=== PATIENT | female | born 1970 | race Caucasian/White ===

== ENCOUNTER 2016-09-02 10:06 | Outpatient (CLI) | payer BC ==
--- NOTE | 2016-09-02 11:08 | DIAGNOSTIC IMAGING REPORT ---
PROCEDURE: US COMPLETE PELVIC W/TRANSVAG INDICATION: PAIN IN JOINT INVOLVING RT PELVIC/AND THIGH TECHNIQUE: Transabdominal and endovaginal elias scale and color Doppler sonographic images of the female pelvis were obtained. COMPARISON: None. FINDINGS: TRANSABDOMINAL SCANS: No pelvic mass. Normal kidneys. Bladder has a normal appearance. TRANSVAGINAL SCANS: Hysterectomy. Normal vaginal cuff. Left ovary surgically absent. Right ovary not visualized. No adnexal mass or free fluid in the cul-de-sac. IMPRESSION: 1. Hysterectomy and left oophorectomy 2. Right ovary not visualized. 3. No pelvic mass or free fluid.
== END 2016-09-02 23:00 ==
LOC: US SRH 10:06
DX: Z90.710 Acquired absence of both cervix and uterus (principal)

== ENCOUNTER 2016-10-08 15:04 | Outpatient (CLI) | payer BC ==
[~2016-10-08 15:04] MED LIST: CYCLOBENZAPRINE10 MG PO
[2016-10-09] MEDS ORDERED: PERCOCET1 TA1 PO (12:17)
== END 2016-10-08 23:00 | disposition home or self-care (01) ==
LOC: LAB SRH 15:04
DX: Z01.818 Encounter for other preprocedural examination (principal); Z01.812 Encounter for preprocedural laboratory examination; R10.2 Pelvic and perineal pain
CPT/HCPCS: 90001; 90004; 90047; 90074; 90155; 90197; 90364; 91004; 92863; 95059

== ENCOUNTER 2016-10-09 09:53 | Day surgery (SDC) | payer BC ==
--- NOTE | 2016-10-03 12:40 | HISTORY AND PHYSICAL ---
ADMITTED: 10/09/2016 CHIEF COMPLAINT: Irregular persistent, sharp right lower quadrant pain HISTORY OF PRESENT ILLNESS: The patient is a recent transfer from the [facility] where she has been followed with different surgeries in the past and is requesting diagnostic laparoscopy for right lower quadrant pain and possible right salpingo-oophorectomy. MEDICAL/SURGICAL HISTORY: The patient has had 2 vaginal deliveries up to 10 pounds and a section for twins and later had dysfunctional uterine bleeding with attempted ablation, which turned into a perforation with treatment by laparoscope and she had laparoscopic-assisted vaginal hysterectomy and left salpingo-oophorectomy and was told to keep her right side. With persistent pain , thought to be from ovulations, on the right side at age of 46. We had discussions about the diagnostic scope and possible RSO. On ultrasound, there was no significant findings on ultrasound. The patient has now been cleared after several visits and is going to have a diagnostic laparoscopy, most likely a right salpingo-oophorectomy after her discussions to show that future right- sided pain is not due to the ovary. Consultation about menopausal and hormone replacement therapy also discussed on several occasions. Menarche normal. Contraceptive abortive history: Negative. OB history: Multiple miscarriages, 2 vaginal deliveries, 1 C section for delivery of twins. Past surgical history: Breast augmentation, appendectomy, hysterectomy, left salpingo oophorectomy, knee surgery, tonsillectomy, tummy tuck. Medical history: Negative: MEDICATIONS: 1. None. ALLERGIES: 1. NONE. SOCIAL HISTORY: Negative smoking, drugs, occasional alcohol. FAMILY HISTORY: Essentially negative for mother, father, siblings alive and well. Hypertension in maternal grandfather, paternal grandfather and father. Cancer, breast in maternal aunt, skin cancer in maternal grandfather and pancreatic in paternal grandmother. REVIEW OF SYSTEMS: Benign. Alert and oriented x3. Genitourinary: Purpose of surgery, right lower quadrant pain, irregular, intense. Cardiovascular: No shortness of breath or chest pain. Gastrointestinal: Normal daily bowel movements. PHYSICAL EXAMINATION: VITAL SIGNS: She is 5 feet 4 inches, 164 pounds, 66 inches, blood pressure 128/ 74, pulse and temperature normal. SKIN/HAIR/INTEGUMENT: Normal. HEENT: Grossly intact. BREASTS: Exam not done. History of augmentation. LUNGS: Clear. HEART: Regular rate and rhythm. ABDOMEN: Benign, previous scars. EXTREMITIES: No significant clubbing, cyanosis, erythema or edema. PELVIC: Exam not done today. RECTAL: Deferred. LAB/IMAGING: Pending. IMPRESSION: 1. Recurrent persistent right adnexal pain. PLAN: Diagnostic laparoscopy with operative right salpingo-oophorectomy. Informed consent was given to the patient. Risks, benefits, complications, and alternatives related to various risks associated with driving a car, possibility of blood loss, damage to pelvic and nonpelvic organs requiring additional surgery, intensive care unit stay and nasogastric tube, coma and . This was reviewed in detail, the risks and benefits of the surgery again were reviewed with the patient. She understands and accepts.
[~2016-10-09] VITALS: Ht 167.6 cm; Wt 74.3 kg
--- NOTE | 2016-10-09 10:29 | NUR ---
PREOP INSTRUCTIONS GIVEN TO PATIENT. QUESTIONS ANSWERED. PATIENT VERBALIZES UNDERSTANDING. CONSENT CONFIRMED. NO PREOP MEDICATIONS. SCDs ON. PATIENT RESTING COMFORTABLY. KB
[2016-10-09] MEDS ORDERED: PERCOCET1 TA1 PO (12:17)
--- NOTE | 2016-10-09 12:18 | Provider's Discharge Care Plan ---
Problem, Goal, Plan Problem List 1. Post-op pain Goals: Improve disease control Instructions: Follow up as needed
--- NOTE | 2016-10-09 12:18 | Provider's Discharge Care Plan ---
Problem, Goal, Plan Problem List 1. Post-op pain Goals: Improve disease control Instructions: Follow up as needed
--- NOTE | 2016-10-09 12:36 | NUR ---
PT RECEIVED TO PACU AROUSABLE, COUGHING AND REPORTING STRESS INCONTINENCE WITH COUGH. PLACED ON HUMIDIFIED O2 VIA FACE TENT FOR INTRACTABLE, NONPRODUCTIVE COUGH. VOIDED SMALL RESIDUAL AMOUNT ON BEDPAN, PERICARE AND DRY LINENS PROVIDED. PT REPORTS MINIMAL PAIN AND NO NAUSEA. WARM BLANKET TO ABDOMEN AND WARM BLANKETS FOR COMFORT. VSS.
--- NOTE | 2016-10-09 12:53 | NUR ---
PT AWAKE AND MODERATELY COMFORTABLE. NO NAUSEA, PAIN AT 3/10. VSS.
--- NOTE | 2016-10-09 13:27 | NUR ---
PATIENT RETURNED TO THE FLOOR AWAKE AND TALKING. VSS. PO OFFERED AND TOLERATED. DENIES PAIN AND NAUSEA AT THIS TIME. KB
[2016-10-09 13:41] VITALS: BP 133/73
--- NOTE | 2016-10-09 13:56 | NUR ---
PATIENT C/O MILD NAUSEA. VISTARIL PO GIVEN. BACK TO [facility]. WILL ADVANCE. CONTINUES TO DENY NEED FOR PAIN MEDS. KB
--- NOTE | 2016-10-09 14:35 | NUR ---
PATIENT C/O BILATERAL THIGH NUMBNESS. DENIES NUMBNESS IN BUTT OR BELOW THIGHS. AMBULATED TO THE BR WITHOUT DIFFICULTY. STATES NAUSEA IS A LITTLE BETTER. VSS. UP IN ROOM INDEPENDENTLY. DISCHARGE INSTRUCTIONS GIVEN TO PATIENT. QUESTONS ANSWERED. PATIENT VERBALIZES UNDERSTANDING. WILL DISCHARGE HOME WITH FRIEND. CATHERINE
--- NOTE | 2016-10-09 14:52 | NUR ---
PATIENT INSTRUCTED TO CALL DR DUNN IN MORNING IN REGARDS TO FLIGHTS ON THU AND . STATED SHE WOULD. OXYCODONE FOR PAIN. KB
--- NOTE | 2016-11-05 09:07 | OPERATIVE REPORT ---
DATE OF SURGERY: 10/09/2016 SURGEON: ОЛЕГ DUNN MD LOADING MANAGER: None PREOPERATIVE DIAGNOSIS: 1. Chronic and acute right lower quadrant pain. POSTOPERATIVE DIAGNOSIS: 1. Chronic and acute right lower quadrant pain. PROCEDURE PERFORMED: 1. Triple puncture 5-mm trocar operative laparoscopy with right oophorectomy with partial salpingectomy suspected. ANESTHESIA: General endotracheal. COMPLICATIONS: None. ESTIMATED BLOOD LOSS: Minimal, less than 5 mL; no blood transfusion GRAFTS/IMPLANTS: No grafts, no implants. PATHOLOGY SPECIMENS: Right ovary sent to Pathology. SURGICAL FINDINGS: Normal. There were significant adhesions. SURGICAL TECHNIQUE: The patient had a time-out. Thus, the usual triple puncture was performed. The patient had previous surgeries. A 5 mm was placed initially subumbilical and then changed to 10 mm, so the specimen could be removed. The trocars were placed without difficulty with good visualization. The right ovary was easily identified, elevated with a grasper. A Thunderbeat was used to dissect and cauterize along the ovarian ligament. The specimen was 1 x 2 x 1. Easily removed by placement in an Endoloop bag and brought out through the 10 mm shaft as the 10 mm port was removed. The instruments were removed. Pictures were taken since determined the case was without difficulty. A [id number] placed in the fascia and then the subcu and the subumbilical incision. Sponge, needle, tape, instrument count was correct x2. The patient tolerated the procedure well and went to the recovery room in good condition. The patient was to be discharged home with Percocet later in the day.
--- NOTE | 2016-11-05 09:07 | OPERATIVE REPORT ---
DATE OF SURGERY: 10/09/2016 SURGEON: ОЛЕГ DUNN MD METAL INSPECTOR: None PREOPERATIVE DIAGNOSIS: 1. Chronic and acute right lower quadrant pain. POSTOPERATIVE DIAGNOSIS: 1. Chronic and acute right lower quadrant pain. PROCEDURE PERFORMED: 1. Triple puncture 5-mm trocar operative laparoscopy with right oophorectomy with partial salpingectomy suspected. ANESTHESIA: General endotracheal. COMPLICATIONS: None. ESTIMATED BLOOD LOSS: Minimal, less than 5 mL; no blood transfusion GRAFTS/IMPLANTS: No grafts, no implants. PATHOLOGY SPECIMENS: Right ovary sent to Pathology. SURGICAL FINDINGS: Normal. There were significant adhesions. SURGICAL TECHNIQUE: The patient had a time-out. Thus, the usual triple puncture was performed. The patient had previous surgeries. A 5 mm was placed initially subumbilical and then changed to 10 mm, so the specimen could be removed. The trocars were placed without difficulty with good visualization. The right ovary was easily identified, elevated with a grasper. A Thunderbeat was used to dissect and cauterize along the ovarian ligament. The specimen was 1 x 2 x 1. Easily removed by placement in an Endoloop bag and brought out through the 10 mm shaft as the 10 mm port was removed. The instruments were removed. Pictures were taken since determined the case was without difficulty. A [id number] placed in the fascia and then the subcu and the subumbilical incision. Sponge, needle, tape, instrument count was correct x2. The patient tolerated the procedure well and went to the recovery room in good condition. The patient was to be discharged home with Percocet later in the day.
== END 2016-10-09 14:57 | disposition home or self-care (01) ==
LOC: SCU SRH 09:53 → OR SRH 09:53
PROVIDERS: Obstetrics & Gynecology
PROC: 0UT04ZZ Resection of Right Ovary, Percutaneous Endoscopic Approach (ICD-10-PCS; principal; 2016-10-09 12:45)
DX: R10.31 Right lower quadrant pain (principal); N83.01 Follicular cyst of right ovary; Z90.710 Acquired absence of both cervix and uterus
CPT/HCPCS: 29229; 29240; 50002; 60001; 70002; 80102; 80212; 80248; 82897; 83125; 83432; 83982; 84038

== ENCOUNTER 2016-11-02 20:54 | Emergency (ER) | payer BC ==
[~2016-11-02 20:54] MED LIST changes: +PERCOCET1 TA1 PO
--- NOTE | 2016-11-02 23:46 | DIAGNOSTIC IMAGING REPORT ---
PROCEDURE: CT ABDOMEN/PELVIS W/O CONTRAST INDICATION: ABDOMINAL PAIN TECHNIQUE: Noncontrast axial images with sagittal and coronal reformations. Intravenous contrast was not utilized (reportedly due to contrast allergy. COMPARISON: None. FINDINGS: ABDOMEN: Gallbladder is contracted (with moderate ingested material in the stomach). Liver, spleen, pancreas, and aorta are normal. There is a 1.5 mm calcification overlying the right iliopsoas muscle which most likely represents a phlebolith. Mild to moderate stool. Small bowel pattern is normal. Surgical clips at the base the appendix. Bilateral breast implants). Postoperative changes of the lower lumbar spine (laminectomy) PELVIS: Status post hysterectomy. Pelvic structures are otherwise normal. No evidence of free fluid. IMPRESSION: 1. Gallbladder is contracted (with moderate ingested material in the stomach). 2. Status post hysterectomy and probable appendectomy. 3. Otherwise negative CT abdomen and pelvis. 4. Findings discussed with KULDIP Thompson All CT scans at this facility use dose modulation, iterative reconstruction, and/or weight-based dosing when appropriate to reduce radiation dose to as low as reasonably achievable.
--- NOTE | 2016-11-02 23:55 | ED ORDER SUMMARY ---
..... Patient: ALEJA FERNANDEZ OrderSheet [facility] VisitID: [id number] [address] [place] [address] 46y, F Registration Date/Time: 11/02/2016 ORDER SHEET Weight: 71.2 kg (stated) Allergies: No Known Drug Allergy GENERAL ORDERS: CBC w Diff Urgent (21:32 11/02/2016 EKoroleva P.A.-C) (Ack 21:35 AMcQuoid ER Tech1) CMP Urgent (21:32 11/02/2016 EKoroleva P.A.-C) (Ack 21:35 AMcQuoid ER Tech1) UA-Culture if indicated Urgent (:32 11/02/2016 EKoroleva P.A.-C) (Ack 21:35 AMcQuoid ER Tech1) CT Abd/Pel w Cont (No) (N/A) Urgent (22:30 11/02/2016 EKoroleva P.A.-C) (Ack 22:42 AMcQuoid ER Tech1) (Cancelled: Other22:54 EKoroleva P.A.-C) CT Abd/Pel wo Cont Urgent (22:54 11/02/2016 EKoroleva P.A.-C) (23:08 RFay) Vitals (23:38 11/02/2016 EKoroleva P.A.-C) (0:17 KPage-Kuchan R.N.) MEDICATION ORDERS: Bactrim DS PO (Tablet 800-160 mg) 1 tab (NOW) (23:48 11/02/2016 EKoroleva P.A.-C) (Ack 0:05 KPage-Kuchan R.N.) (0:17 KPage-Kuchan R.N.) Keflex PO 500 mg (NOW) (23:49 11/02/2016 EKoroleva P.A.-C) (Ack 0:05 KPage-Kuchan R.N.) (0:17 KPage-Kuchan R.N.) IV FLUIDS: IV NS : initial bolus 250 mL (1000 mL/hr), then 200 mL/hr for X1 (NOW); Riky (21:32 11/02/2016 Danika Galloway) (Ack 21:39 al) (22:00 Carlos Hensley) ORDER SHEET NOTES: [Electronically signed by Chikis Casiano P.A.-C (23:59 11/02/2016)] [Electronically signed by Sheriff Ayedn Dupree (09:01 11/05/2016)] [Electronically locked/signed by Sheriff Ayden Dupree (09:01 11/05/2016)]
--- NOTE | 2016-11-02 23:55 | ED NURSING NOTES ---
Clinical Report - Nurses [facility] [place] [address] [address] 11/02/2016 20:55 Patient: ALEJA FERNANDEZ TRIAGE Triage time 21:03. Acuity: LEVEL 3. Chief Complaint: ABDOMINAL PAIN. --21: Sheriff Dupree R.N. 21:02 11/02/16. BP: 138/80. HR: 72. RR: 18. O2 saturation: 100%. Temp: 98.3 F. Pain level now: 08/27. --21: Sheriff Dupree R.N. Weight: 71.2 kg stated. Height/Length: 66 inches Per Patient. BMI: 25.3. --21: Sheriff Dupree R.N. Medications Percocet Oral. --21: Sheriff Dupree R.N. Allergies No Known Drug Allergy. --21: Sheriff Dupree R.N. History Arrived by private vehicle. Historian: patient. Accompanied by family. ( Post op right oophorectomy surgery 3 week ago.). PAST MEDICAL HX: Denies current . SURGERY HX: Had hysterectomy. Oophorectomy (Bilateral. Right oophorectomy 3 weeks ago). SOCIAL HX: Never smoker. Occasional alcohol use. No drug use. FALL RISK ASSESSMENT: Fall risk assessment completed. No fall risk identified. NUTRITIONAL RISK ASSESSMENT: The nutritional risk assessment revealed no deficiencies. FUNCTIONAL ASSESSMENT: Functional assessment: no impairments noted. LEARNING NEEDS ASSESSMENT: The learning needs assessment revealed no barriers. SKIN INTEGRITY ASSESSMENT: Skin integrity risk assessment completed. No skin integrity risk identified. --21:08 Sheriff Dupree R.N. PROBLEMS: Ovarian Cyst. Gastritis. Recent Travel. Lupus. --21:05 Sheriff Dupree R.N. PHYSICAL ASSESSMENT Ambulatory to room. GENERAL / NEURO / PSYCH: Alert. Oriented X 4. Appears in no acute distress. HEENT: Mucous membranes are pink. RESPIRATORY: Respirations not labored. CVS: Capillary refill less than 2 seconds. SKIN: Skin is warm and dry. --21:08 Sheriff Dupree R.N. NURSING PROGRESS NOTES Head of bed elevated. Two patient identifiers checked. Call light placed in reach. Side rails up x 2. Bed placed in lowest position. Brakes of bed on. --21:09 Sheriff Dupree R.N. 21:54 11/02/2016 Site #1 started via IV in the left wrist with an 22g angiocath, with aseptic technique and good blood return; one attempt. Blood drawn: rainbow set. Labeled in the presence of the patient and sent to the lab. Saline lock flushed with 10 mL saline. --21:59 Sheriff Dupree R.N. 21:59 11/02/2016 Started bag #1 250 mL IV Fluids IV NS (Saline); at 1000 mL/hr over 30 minute(s) via site #1 via IV pump. Allergies verified and confirmed 5 rights. IV patency established. IV site checked: no pain, redness, or swelling. IV flushed thoroughly pre- and post-medication administration. --22:00 Sheriff Dupree R.N. 00:12 11/03/2016 Bactrim DS (Sulfamethoxazole-TMP DS) PO 1 tab given. Allergies verified and confirmed 5 rights. --00:17 Kj Quijano R.N. 00:12 11/03/2016 Keflex (Cephalexin) PO 500 mg given. Allergies verified and confirmed 5 rights. --00:17 Kj Quijano R.N. DISPOSITION / DISCHARGE 00:08 11/03/2016 Site #1 removed upon discharge. Bandaid applied. --00:19 Kj Quijano R.N. No learning barriers present. Discharge instructions provided and reviewed with the patient and spouse. Reviewed medication(s) side effects, precautions, dosing and course information. Prescription(s) given to the patient. Patient and spouse verbalized understanding. Written instructions provided in Dominican. The patient was discharged by the physician nutritional assistant. She was discharged home and accompanied by spouse. She left the Emergency Department ambulatory and via private vehicle. Spouse driving. --00:20 Kj Quijano R.N. 00:18 11/03/16. BP: 124/72. HR: 68. RR: 15. O2 saturation: 100%. Temp: deferred. Pain level now: 06/27. --00:20 Page-Kj Ambriz R.N. Locked/Released at 11/05/2016 9:01 by Sheriff Dupree R.N.
--- NOTE | 2016-11-02 23:55 | ED CLINICAL REPORT ---
Clinical Report - Physicians/Mid Levels [facility] [address] [place] [address] 11/02/2016 20:55 Patient: ALEJA FERNANDEZ Time Seen: 2131. Arrived- By private vehicle. Historian- patient. HISTORY OF PRESENT ILLNESS Chief Complaint: ABDOMINAL PAIN. It is described as "pain". This started yesterday and is still present. No nausea, vomiting or diarrhea. (patient status b/l oophrectomy 3 weeks ago in the hospital,has been doing well, however active, central increasing of pain over the last 2 days noted a rash today. Denies fevers/ chills. Denies drainage. Pt has been active.). REVIEW OF SYSTEMS No constipation, difficulty with urination, pain with urination, urinary frequency or fever. No sore throat, chest pain, difficulty breathing or chills. All systems otherwise negative, except as recorded above. PAST HISTORY No history of gallstones. Has not had urinary calculi. Problems: Ovarian Cyst. Gastritis. Recent Travel. Lupus. Additional Surgeries: Appendectomy. Breast Augmentation. Hysterectomy. Knee Surgery. Oophorectomy. Partial hysterectomy. Tonsillectomy. Medications: Percocet Oral. Allergies: No Known Drug Allergy. SOCIAL HISTORY Never smoker. Alcohol use. No drug use. ADDITIONAL NOTES The nursing notes have been reviewed. PHYSICAL EXAM Vital Signs: 11/02/2016 21:02 BP: 138/80. HR: 72. RR: 18. O2 saturation: 100%. Temp: 98.3 F. Pain level now: 5/10. Appearance: Alert. ENT: Pharynx normal. Neck: Normal inspection. CVS: Normal heart rate and rhythm. Respiratory: No respiratory distress. Breath sounds normal. No accessory muscle use or decreased air movement. Abdomen: Tenderness (marsha-umbillical with erythema swelling). Back: Normal inspection. Skin: Skin warm. Extremities: Extremities exhibit normal ROM. LABS, X-RAYS, AND EKG Abdominal CT: IMPRESSION: 1. Gallbladder is contracted (with moderate ingested material in the stomach). 2. Status post hysterectomy and probable appendectomy. 3. Otherwise negative CT abdomen and pelvis. 4. Findings discussed with Cathie Casiano, KULDIP All CT scans at this facility use dose modulation, iterative reconstruction, and/or weight-based dosing when appropriate to reduce radiation dose to as low as reasonably achievable. Electronically Final signed by:Yaniv Rodriguez MD 11/02/2016 11:40:32 PM. Laboratory Tests: CBC w Diff: (GAIL: 11/02/2016 21:47) ( [facility] 11/02/2016 22:15) Final results Test Result Flag Units (Reference) WHITE BLOOD COUNT 8.2 K/uL (4.5-11.5) RED BLOOD COUNT 3.71 L M/uL (4.00-5.20) HEMOGLOBIN 11.7 L gm/dL (12.0-16.0) HEMATOCRIT 34.3 L % (36.0-46.0) MEAN CELL VOLUME 92 fL (80-100) MEAN CORPUSCULAR HGB 32 pg (26-34) MEAN CORPUSCULAR HGB CONC 34 g/dL (31-37) RED CELL DISTRIBUTION WIDTH 13.3 % (11.6-14.8) PLATELET COUNT 303 K/uL (150-400) NEUTROPHIL % 52.5 % (50-75) LYMPH % 32.4 % (25-40) MONO % 8.6 % (3-14) EOSINOPHIL % 6.2 H % (0-4) BASOPHIL % 0.3 % (0-2) CMP: (GAIL: 11/02/2016 21:47) ( [facility] 11/02/2016 22:32) Final results Test Result Flag Units (Reference) GLUCOSE 105 mg/dL (70-110) BUN 10 mg/dL (7-18) CREATININE 0.7 mg/dL (0.6-1.3) Estimated GFR >60 mL/min Estimated GFR- >60 mL/min Note: Persistent reduction over 3 months in eGFR<60 mL/min/1.73 m2 defines CKD. Patients with eGFR values>=60 mL/min/1.73 m2 may also have CKD if evidence ofpersistent proteinuria. Additional information may be foundat www.kidney.org. SODIUM 140 mmol/L (136-145) POTASSIUM 3.7 mmol/L (3.5-5.1) CHLORIDE 105 mmol/L (98-107) CARBON DIOXIDE 30 mmol/L (21-32) CALCIUM 8.4 L mg/dL (8.5-10.1) TOTAL PROTEIN 6.8 g/dL (6.4-8.2) ALBUMIN 3.6 g/dL (3.3-5.0) BILIRUBIN, TOTAL 0.2 mg/dL (0.0-1.0) ALKALINE PHOSPHATASE 79 U/L (46-116) AST (SGOT) 16 U/L (15-37) ALT (SGPT) 15 U/L (12-78) . PROGRESS AND PROCEDURES Course of Care: HEENT ER patient is asleep in no distress, no signs of leukocytosis all area of erythema. Patienthas no nausea or vomiting. Patient CT of abdomen and pelvis is unremarkable. Superficial cellulitis of be treated with Bactrim and Keflex. Patient was sized constipation, encourage Colace or stool softener home. 11/02/2016 21:02 BP: 138/80. HR: 72. RR: 18. O2 saturation: 100%. Temp: 98.3 F. Pain level now: 5/10. Patient is stable. Physical exam findings are improved. Symptoms better. Patient/family counseled. Disposition: Discharged. Condition: good. CLINICAL IMPRESSION Cellulitis of the abdominal wall. No foreign body present. Constipation Post Op Pain. INSTRUCTIONS Drink plenty of fluids. Prescription Medications: Cephalexin 500 mg: take 1 capsule orally every 8 hours for 10 days. No refill. Bactrim DS 800 mg / 160 mg: take 1 tablet orally every 12 hours for 10 days. No refill. Substitution is permissible. OTC Medications: Colace capsules (available over the counter): take according to label instructions. Follow-up: Follow up with your doctor in three days. (Electronically signed by Chikis Casiano P.A.-C 11/02/2016 23:59)
--- NOTE | 2016-11-02 23:55 | ED ORDER SUMMARY ---
..... Patient: ALEJA FERNANDEZ OrderSheet [facility] VisitID: [id number] [address] [place] [address] 46y, F Registration Date/Time: 11/02/2016 ORDER SHEET Weight: 71.2 kg (stated) Allergies: No Known Drug Allergy GENERAL ORDERS: CBC w Diff Urgent (21:32 11/02/2016 EKoroleva P.A.-C) (Ack 21:35 AMcQuoid ER Tech1) CMP Urgent (21:32 11/02/2016 EKoroleva P.A.-C) (Ack 21:35 AMcQuoid ER Tech1) UA-Culture if indicated Urgent (:32 11/02/2016 EKoroleva P.A.-C) (Ack 21:35 AMcQuoid ER Tech1) CT Abd/Pel w Cont (No) (N/A) Urgent (22:30 11/02/2016 EKoroleva P.A.-C) (Ack 22:42 AMcQuoid ER Tech1) (Cancelled: Other22:54 EKoroleva P.A.-C) CT Abd/Pel wo Cont Urgent (22:54 11/02/2016 EKoroleva P.A.-C) (23:08 RFay) Vitals (23:38 11/02/2016 EKoroleva P.A.-C) (0:17 KPage-Kuchan R.N.) MEDICATION ORDERS: Bactrim DS PO (Tablet 800-160 mg) 1 tab (NOW) (23:48 11/02/2016 EKoroleva P.A.-C) (Ack 0:05 KPage-Kuchan R.N.) (0:17 KPage-Kuchan R.N.) Keflex PO 500 mg (NOW) (23:49 11/02/2016 EKoroleva P.A.-C) (Ack 0:05 KPage-Kuchan R.N.) (0:17 KPage-Kuchan R.N.) IV FLUIDS: IV NS : initial bolus 250 mL (1000 mL/hr), then 200 mL/hr for X1 (NOW); Riky (21:32 11/02/2016 Danika Galloway) (Ack 21:39 al) (22:00 Carlos Hensley) ORDER SHEET NOTES: [Electronically signed by Chikis Casiano P.A.-C (23:59 11/02/2016)] [Electronically signed by Sheriff Ayden Dupree (09:01 11/05/2016)] [Electronically locked/signed by Sheriff Ayedn Dupree (09:01 11/05/2016)]
--- NOTE | 2016-11-02 23:55 | ED NURSING NOTES ---
Clinical Report - Nurses [facility] [place] [address] 11/02/2016 20:55 Patient: ALEJA FERNANDEZ TRIAGE Triage time 21:03. Acuity: LEVEL 3. Chief Complaint: ABDOMINAL PAIN. --21: Sheriff Dupree R.N. 21:02 11/02/16. BP: 138/80. HR: 72. RR: 18. O2 saturation: 100%. Temp: 98.3 F. Pain level now: 08/27. --21: Sheriff Dupree R.N. Weight: 71.2 kg stated. Height/Length: 66 inches Per Patient. BMI: 25.3. --21: Sheriff Dupree R.N. Medications Percocet Oral. --21: Sheriff Dupree R.N. Allergies No Known Drug Allergy. --21: Sheriff Dupree R.N. History Arrived by private vehicle. Historian: patient. Accompanied by family. ( Post op right oophorectomy surgery 3 week ago.). PAST MEDICAL HX: Denies current . SURGERY HX: Had hysterectomy. Oophorectomy (Bilateral. Right oophorectomy 3 weeks ago). SOCIAL HX: Never smoker. Occasional alcohol use. No drug use. FALL RISK ASSESSMENT: Fall risk assessment completed. No fall risk identified. NUTRITIONAL RISK ASSESSMENT: The nutritional risk assessment revealed no deficiencies. FUNCTIONAL ASSESSMENT: Functional assessment: no impairments noted. LEARNING NEEDS ASSESSMENT: The learning needs assessment revealed no barriers. SKIN INTEGRITY ASSESSMENT: Skin integrity risk assessment completed. No skin integrity risk identified. --21:08 Sheriff Dupree R.N. PROBLEMS: Ovarian Cyst. Gastritis. Recent Travel. Lupus. --21:05 Sheriff Dupree R.N. PHYSICAL ASSESSMENT Ambulatory to room. GENERAL / NEURO / PSYCH: Alert. Oriented X 4. Appears in no acute distress. HEENT: Mucous membranes are pink. RESPIRATORY: Respirations not labored. CVS: Capillary refill less than 2 seconds. SKIN: Skin is warm and dry. --21:08 Sheriff Dupree R.N. NURSING PROGRESS NOTES Head of bed elevated. Two patient identifiers checked. Call light placed in reach. Side rails up x 2. Bed placed in lowest position. Brakes of bed on. --21:09 Sheriff Dupree R.N. 21:54 11/02/2016 Site #1 started via IV in the left wrist with an 22g angiocath, with aseptic technique and good blood return; one attempt. Blood drawn: rainbow set. Labeled in the presence of the patient and sent to the lab. Saline lock flushed with 10 mL saline. --21:59 Sheriff Dupree R.N. 21:59 11/02/2016 Started bag #1 250 mL IV Fluids IV NS (Saline); at 1000 mL/hr over 30 minute(s) via site #1 via IV pump. Allergies verified and confirmed 5 rights. IV patency established. IV site checked: no pain, redness, or swelling. IV flushed thoroughly pre- and post-medication administration. --22:00 Sheriff Dupree R.N. 00:12 11/03/2016 Bactrim DS (Sulfamethoxazole-TMP DS) PO 1 tab given. Allergies verified and confirmed 5 rights. --00:17 Kj Quijano R.N. 00:12 11/03/2016 Keflex (Cephalexin) PO 500 mg given. Allergies verified and confirmed 5 rights. --00:17 Kj Quijano R.N. DISPOSITION / DISCHARGE 00:08 11/03/2016 Site #1 removed upon discharge. Bandaid applied. --00:19 Kj Quijano R.N. No learning barriers present. Discharge instructions provided and reviewed with the patient and spouse. Reviewed medication(s) side effects, precautions, dosing and course information. Prescription(s) given to the patient. Patient and spouse verbalized understanding. Written instructions provided in Guyanese. The patient was discharged by the physician pastrycook's assistant. She was discharged home and accompanied by spouse. She left the Emergency Department ambulatory and via private vehicle. Spouse driving. --00:20 Kj Quijano R.N. 00:18 11/03/16. BP: 124/72. HR: 68. RR: 15. O2 saturation: 100%. Temp: deferred. Pain level now: 06/27. --00:20 Page-Kj Ambriz R.N. Locked/Released at 11/05/2016 9:01 by Sheriff Dupree R.N.
--- NOTE | 2016-11-02 23:55 | ED CLINICAL REPORT ---
Clinical Report - Physicians/Mid Levels [facility] [address] [place] [address] 11/02/2016 20:55 Patient: ALEJA FERNANDEZ Time Seen: 2131. Arrived- By private vehicle. Historian- patient. HISTORY OF PRESENT ILLNESS Chief Complaint: ABDOMINAL PAIN. It is described as "pain". This started yesterday and is still present. No nausea, vomiting or diarrhea. (patient status b/l oophrectomy 3 weeks ago in the hospital,has been doing well, however active, central increasing of pain over the last 2 days noted a rash today. Denies fevers/ chills. Denies drainage. Pt has been active.). REVIEW OF SYSTEMS No constipation, difficulty with urination, pain with urination, urinary frequency or fever. No sore throat, chest pain, difficulty breathing or chills. All systems otherwise negative, except as recorded above. PAST HISTORY No history of gallstones. Has not had urinary calculi. Problems: Ovarian Cyst. Gastritis. Recent Travel. Lupus. Additional Surgeries: Appendectomy. Breast Augmentation. Hysterectomy. Knee Surgery. Oophorectomy. Partial hysterectomy. Tonsillectomy. Medications: Percocet Oral. Allergies: No Known Drug Allergy. SOCIAL HISTORY Never smoker. Alcohol use. No drug use. ADDITIONAL NOTES The nursing notes have been reviewed. PHYSICAL EXAM Vital Signs: 11/02/2016 21:02 BP: 138/80. HR: 72. RR: 18. O2 saturation: 100%. Temp: 98.3 F. Pain level now: 5/10. Appearance: Alert. ENT: Pharynx normal. Neck: Normal inspection. CVS: Normal heart rate and rhythm. Respiratory: No respiratory distress. Breath sounds normal. No accessory muscle use or decreased air movement. Abdomen: Tenderness (marsha-umbillical with erythema swelling). Back: Normal inspection. Skin: Skin warm. Extremities: Extremities exhibit normal ROM. LABS, X-RAYS, AND EKG Abdominal CT: IMPRESSION: 1. Gallbladder is contracted (with moderate ingested material in the stomach). 2. Status post hysterectomy and probable appendectomy. 3. Otherwise negative CT abdomen and pelvis. 4. Findings discussed with Cathie Casiano, KULDIP All CT scans at this facility use dose modulation, iterative reconstruction, and/or weight-based dosing when appropriate to reduce radiation dose to as low as reasonably achievable. Electronically Final signed by:Yaniv Rodriguez MD 11/02/2016 11:40:32 PM. Laboratory Tests: CBC w Diff: (GAIL: 11/02/2016 21:47) ( [facility] [place] 11/02/2016 22:15) Final results Test Result Flag Units (Reference) WHITE BLOOD COUNT 8.2 K/uL (4.5-11.5) RED BLOOD COUNT 3.71 L M/uL (4.00-5.20) HEMOGLOBIN 11.7 L gm/dL (12.0-16.0) HEMATOCRIT 34.3 L % (36.0-46.0) MEAN CELL VOLUME 92 fL (80-100) MEAN CORPUSCULAR HGB 32 pg (26-34) MEAN CORPUSCULAR HGB CONC 34 g/dL (31-37) RED CELL DISTRIBUTION WIDTH 13.3 % (11.6-14.8) PLATELET COUNT 303 K/uL (150-400) NEUTROPHIL % 52.5 % (50-75) LYMPH % 32.4 % (25-40) MONO % 8.6 % (3-14) EOSINOPHIL % 6.2 H % (0-4) BASOPHIL % 0.3 % (0-2) CMP: (GAIL: 11/02/2016 21:47) ( [facility] [place] 11/02/2016 22:32) Final results Test Result Flag Units (Reference) GLUCOSE 105 mg/dL (70-110) BUN 10 mg/dL (7-18) CREATININE 0.7 mg/dL (0.6-1.3) Estimated GFR >60 mL/min Estimated GFR- >60 mL/min Note: Persistent reduction over 3 months in eGFR<60 mL/min/1.73 m2 defines CKD. Patients with eGFR values>=60 mL/min/1.73 m2 may also have CKD if evidence ofpersistent proteinuria. Additional information may be foundat www.[email or web address].org. SODIUM 140 mmol/L (136-145) POTASSIUM 3.7 mmol/L (3.5-5.1) CHLORIDE 105 mmol/L (98-107) CARBON DIOXIDE 30 mmol/L (21-32) CALCIUM 8.4 L mg/dL (8.5-10.1) TOTAL PROTEIN 6.8 g/dL (6.4-8.2) ALBUMIN 3.6 g/dL (3.3-5.0) BILIRUBIN, TOTAL 0.2 mg/dL (0.0-1.0) ALKALINE PHOSPHATASE 79 U/L (46-116) AST (SGOT) 16 U/L (15-37) ALT (SGPT) 15 U/L (12-78) . PROGRESS AND PROCEDURES Course of Care: HEENT ER patient is asleep in no distress, no signs of leukocytosis all area of erythema. Patienthas no nausea or vomiting. Patient CT of abdomen and pelvis is unremarkable. Superficial cellulitis of be treated with Bactrim and Keflex. Patient was sized constipation, encourage Colace or stool softener home. 11/02/2016 21:02 BP: 138/80. HR: 72. RR: 18. O2 saturation: 100%. Temp: 98.3 F. Pain level now: 5/10. Patient is stable. Physical exam findings are improved. Symptoms better. Patient/family counseled. Disposition: Discharged. Condition: good. CLINICAL IMPRESSION Cellulitis of the abdominal wall. No foreign body present. Constipation Post Op Pain. INSTRUCTIONS Drink plenty of fluids. Prescription Medications: Cephalexin 500 mg: take 1 capsule orally every 8 hours for 10 days. No refill. Bactrim DS 800 mg / 160 mg: take 1 tablet orally every 12 hours for 10 days. No refill. Substitution is permissible. OTC Medications: Colace capsules (available over the counter): take according to label instructions. Follow-up: Follow up with your doctor in three days. (Electronically signed by Chikis Casiano P.A.-C 11/02/2016 23:59)
--- NOTE | 2016-11-05 09:01 | ED MAR SUMMARY ---
..... Medication Administration Record [facility] [address] [place] [address] Patient: ALEJA FERNANDEZ Visit ID: [id number] 46y, F Weight: 71.2 kg Height/Length: 66 in BMI: 25.3 ALLERGIES: No Known Drug Allergy Start 21:59 11/02/2016 Sheriff Dupree R.N. Medication Administered: IV NS (SALINE), Dose: IV Fluids over 30 minute(s), Rate: 1000 mL/hr, Dispensed: 250 mL bag, Site: #1 left wrist. Medication Ordered: IV NS : initial bolus 250 mL (1000 mL/hr), then 200 mL/hr for X1 (NOW); Riky. Given 00:12 11/03/2016 Kj Quijano R.N. Medication Administered: BACTRIM DS [PO] (SULFAMETHOXAZOLE-TMP DS), Dose: 1 tab PO. Medication Ordered: Bactrim DS PO (Tablet 800-160 mg) 1 tab (NOW). Given 00:12 11/03/2016 Kj Quijano RMartín Medication Administered: KEFLEX [PO] (CEPHALEXIN), Dose: 500 mg PO. Medication Ordered: Keflex PO 500 mg (NOW).
--- NOTE | 2016-11-05 09:01 | ED DISCHARGE INSTRUCTIONS ---
Patient: ALEJA FERNANDEZ General Instructions [facility] VisitID: [id number] [place] [address] 46y, F Registration Date/Time: 11/02/2016 Cellulitis of the abdominal wall. No foreign body present. Constipation Post Op Pain. INSTRUCTIONS Drink plenty of fluids. Prescription Medications: Cephalexin 500 mg: take 1 capsule orally every 8 hours for 10 days. No refill. Bactrim DS 800 mg / 160 mg: take 1 tablet orally every 12 hours for 10 days. No refill. Substitution is permissible. OTC Medications: Colace capsules (available over the counter): take according to label instructions. Follow-up: Follow up with your doctor in three days. ADDITIONAL INFORMATION Cellulitis You have an infection of the skin known as cellulitis. This usually starts with a scrape, cut, insect bite, blister or other opening in the skin which becomes infected. This is a serious condition. It must be watched closely to be sure the infection is not spreading. With antibiotic treatment, the size of the red area will gradually shrink in size until the skin returns to normal. This will take 7-10 days. The red area should never increase in size once the antibiotic medicine has been started. Occasionally, an infection will be resistant to one antibiotic and another one will have to be used. Home Care: 1) Limit the use of the affected part, since excess movement can cause the infection to spread. 2) If the infection is on your leg, walk as little as possible during the first few days of the treatment. Keep your leg elevated while sitting. This will reduce swelling. 3) Take all of the antibiotic medicine exactly as directed until it is gone. Be careful not to miss any doses, especially during the first seven days. Follow Up with your doctor or this facility as directed. Check the infected area daily for the warning signs listed below. Get Prompt Medical Attention if any of the following occur: -- Spreading area of redness -- Increasing swelling or pain -- Appearance of pus or drainage -- Fever over 100.4 F (38.0 C) oral, or over 101.4 F (38.6 C) rectal, after two days on antibiotics Constipation (Adult) Constipation is bowel movements that are less frequent than usual. Stools often become very hard and difficult to pass. This may lead to abdominal pain and bloating. It may also cause painful bowel movements. Constipation may be due to a diet thats low in fiber. Some medications, especially pain medications, can also cause it. Constipation may be treated with enemas, suppositories, laxatives or stool softeners. Your doctor will advise you which will work best for you. Follow the advice below to help avoid this problem in the future. Home Care Medication: Take any medicines as directed. Some laxatives are safe only for occasional use. Others can be taken on a regular basis. Talk to your doctor or pharmacist if you have questions. General Care: Prescription pain medications can cause constipation. If you are prescribed pain medications, ask the doctor whether you should also take a stool softener. A diet high in fiber with plenty of fluids helps to maintain regular, soft bowel movements. The following foods are good sources of dietary fiber: Cereals and breads: Whole grain cereal with bran, oatmeal, rolled oats, whole grain breads Fruits: All fruits (fresh and dried), raisins, prunes, apricots, berries, figs Vegetables: Any fresh vegetables, especially peas, broccoli, brussels sprouts, winter squash, green beans, cauliflower, james beans, carrots Other: Popcorn, brown rice Drink plenty of water when you increase the amount of fiber you eat. Follow Up with your doctor or return to this facility if symptoms do not improve in the next few days. You may require further tests or a referral to a specialist. Get Prompt Medical Attention if any of the following occur: Fever over 100.4F (38C) Failure to resume normal bowel movements Increasing abdominal or back pain Nausea or vomiting Abdominal swelling Blood in the stool Weakness, dizziness or fainting Unexpected vaginal bleeding Cephalexin Monohydrate Oral tablet What is this medicine? CEPHALEXIN (sef a JENNIFER in) is a cephalosporin antibiotic. It is used to treat certain kinds of bacterial infections It will not work for colds, flu, or other viral infections. How should I use this medicine? Take this medicine by mouth with a full glass of water. Follow the directions on the prescription label. This medicine can be taken with or without food. Take your medicine at regular intervals. Do not take your medicine more often than directed. Take all of your medicine as directed even if you think you are better. Do not skip doses or stop your medicine early. Talk to your stator winder regarding the use of this medicine in children. While this drug may be prescribed for selected conditions, precautions do apply. What side effects may I notice from receiving this medicine? Side effects that you should report to your doctor or health day care home mother as soon as possible: allergic reactions like skin rash, itching or hives, swelling of the face, lips, or tongue breathing problems pain or trouble passing urine redness, blistering, peeling or loosening of the skin, including inside the mouth severe or watery diarrhea unusually weak or tired yellowing of the eyes, skin Side effects that usually do not require medical attention (report to your doctor or health day care home mother if they continue or are bothersome): gas or heartburn genital or anal irritation headache joint or muscle pain nausea, vomiting What may interact with this medicine? probenecid some other antibiotics What if I miss a dose? If you miss a dose, take it as soon as you can. If it is almost time for your next dose, take only that dose. Do not take double or extra doses. There should be at least 4 to 6 hours between doses. Where should I keep my medicine? Keep out of the reach of children. Store at room temperature between 59 and 86 degrees F (15 and 30 degrees C). Throw away any unused medicine after the expiration date. What should I tell my health care provider before I take this medicine? They need to know if you have any of these conditions: kidney disease stomach or intestine problems, especially colitis an unusual or allergic reaction to cephalexin, other cephalosporins, penicillins, other antibiotics, medicines, foods, dyes or preservatives or trying to get breast-feeding What should I watch for while using this medicine? Tell your doctor or health day care home mother if your symptoms do not begin to improve in a few days. Do not treat diarrhea with over the counter products. Contact your doctor if you have diarrhea that lasts more than 2 days or if it is severe and watery. If you have diabetes, you may get a false-positive result for sugar in your urine. Check with your doctor or health day care home mother. You have been given the following additional information: Cellulitis Constipation (Adult) Cephalexin Monohydrate Oral tablet (Electronically signed by KoroleChikis whitney P.A.-C 11/02/2016 23:59)
--- NOTE | 2016-11-05 09:01 | ED MED RECONCILIATION SUMMARY ---
Patient: ALEJA FERNANDEZ Medication Reconciliation Report [facility] VisitID: [id number] [address] [place] [address] 46y, F Registration Date/Time: 11/02/2016 Weight: 71.2 kg Height/Length: 66 in. BMI: 25.3 ALLERGIES: No Known Drug Allergy The patient's Home Medications are listed below: THE FOLLOWING MEDICATIONS NEED TO BE RECONCILED: Percocet Oral The source(s) of the original Home Medication information: Not obtained. The following Medications were given to the patient in the Emergency Department: IV NS IV Fluids bolus 0, then 1000 mL/hr, administered: 11/02/2016 9:59:00 PM Bactrim DS [PO] PO 1 tab, administered: 11/03/2016 12:12:00 AM Keflex [PO] PO 500 mg, administered: 11/03/2016 12:12:00 AM The following Medications were prescribed to the patient: Cephalexin 500 mg: take 1 capsule orally every 8 hours for 10 days. No refill. -- Chikis Casiano P.A.-Jean Bactrim DS 800 mg / 160 mg: take 1 tablet orally every 12 hours for 10 days. No refill. Substitution is permissible. -- Chikis Casiano, P.A.-Jean Colace capsules (available over the counter): take according to label instructions. -- Chikis Casiano P.A.-C
--- NOTE | 2016-11-05 09:01 | ED DISCHARGE INSTRUCTIONS ---
Patient: ALEJA FERNANDEZ General Instructions [facility] VisitID: [id number] [place] [address] 46y, F Registration Date/Time: 11/02/2016 Cellulitis of the abdominal wall. No foreign body present. Constipation Post Op Pain. INSTRUCTIONS Drink plenty of fluids. Prescription Medications: Cephalexin 500 mg: take 1 capsule orally every 8 hours for 10 days. No refill. Bactrim DS 800 mg / 160 mg: take 1 tablet orally every 12 hours for 10 days. No refill. Substitution is permissible. OTC Medications: Colace capsules (available over the counter): take according to label instructions. Follow-up: Follow up with your doctor in three days. ADDITIONAL INFORMATION Cellulitis You have an infection of the skin known as cellulitis. This usually starts with a scrape, cut, insect bite, blister or other opening in the skin which becomes infected. This is a serious condition. It must be watched closely to be sure the infection is not spreading. With antibiotic treatment, the size of the red area will gradually shrink in size until the skin returns to normal. This will take 7-10 days. The red area should never increase in size once the antibiotic medicine has been started. Occasionally, an infection will be resistant to one antibiotic and another one will have to be used. Home Care: 1) Limit the use of the affected part, since excess movement can cause the infection to spread. 2) If the infection is on your leg, walk as little as possible during the first few days of the treatment. Keep your leg elevated while sitting. This will reduce swelling. 3) Take all of the antibiotic medicine exactly as directed until it is gone. Be careful not to miss any doses, especially during the first seven days. Follow Up with your doctor or this facility as directed. Check the infected area daily for the warning signs listed below. Get Prompt Medical Attention if any of the following occur: -- Spreading area of redness -- Increasing swelling or pain -- Appearance of pus or drainage -- Fever over 100.4 F (38.0 C) oral, or over 101.4 F (38.6 C) rectal, after two days on antibiotics Constipation (Adult) Constipation is bowel movements that are less frequent than usual. Stools often become very hard and difficult to pass. This may lead to abdominal pain and bloating. It may also cause painful bowel movements. Constipation may be due to a diet thats low in fiber. Some medications, especially pain medications, can also cause it. Constipation may be treated with enemas, suppositories, laxatives or stool softeners. Your doctor will advise you which will work best for you. Follow the advice below to help avoid this problem in the future. Home Care Medication: Take any medicines as directed. Some laxatives are safe only for occasional use. Others can be taken on a regular basis. Talk to your doctor or pharmacist if you have questions. General Care: Prescription pain medications can cause constipation. If you are prescribed pain medications, ask the doctor whether you should also take a stool softener. A diet high in fiber with plenty of fluids helps to maintain regular, soft bowel movements. The following foods are good sources of dietary fiber: Cereals and breads: Whole grain cereal with bran, oatmeal, rolled oats, whole grain breads Fruits: All fruits (fresh and dried), raisins, prunes, apricots, berries, figs Vegetables: Any fresh vegetables, especially peas, broccoli, brussels sprouts, winter squash, green beans, cauliflower, james beans, carrots Other: Popcorn, brown rice Drink plenty of water when you increase the amount of fiber you eat. Follow Up with your doctor or return to this facility if symptoms do not improve in the next few days. You may require further tests or a referral to a specialist. Get Prompt Medical Attention if any of the following occur: Fever over 100.4F (38C) Failure to resume normal bowel movements Increasing abdominal or back pain Nausea or vomiting Abdominal swelling Blood in the stool Weakness, dizziness or fainting Unexpected vaginal bleeding Cephalexin Monohydrate Oral tablet What is this medicine? CEPHALEXIN (sef a JENNIFER in) is a cephalosporin antibiotic. It is used to treat certain kinds of bacterial infections It will not work for colds, flu, or other viral infections. How should I use this medicine? Take this medicine by mouth with a full glass of water. Follow the directions on the prescription label. This medicine can be taken with or without food. Take your medicine at regular intervals. Do not take your medicine more often than directed. Take all of your medicine as directed even if you think you are better. Do not skip doses or stop your medicine early. Talk to your paper reel operator regarding the use of this medicine in children. While this drug may be prescribed for selected conditions, precautions do apply. What side effects may I notice from receiving this medicine? Side effects that you should report to your doctor or health clinical manager home care as soon as possible: allergic reactions like skin rash, itching or hives, swelling of the face, lips, or tongue breathing problems pain or trouble passing urine redness, blistering, peeling or loosening of the skin, including inside the mouth severe or watery diarrhea unusually weak or tired yellowing of the eyes, skin Side effects that usually do not require medical attention (report to your doctor or health clinical manager home care if they continue or are bothersome): gas or heartburn genital or anal irritation headache joint or muscle pain nausea, vomiting What may interact with this medicine? probenecid some other antibiotics What if I miss a dose? If you miss a dose, take it as soon as you can. If it is almost time for your next dose, take only that dose. Do not take double or extra doses. There should be at least 4 to 6 hours between doses. Where should I keep my medicine? Keep out of the reach of children. Store at room temperature between 59 and 86 degrees F (15 and 30 degrees C). Throw away any unused medicine after the expiration date. What should I tell my health care provider before I take this medicine? They need to know if you have any of these conditions: kidney disease stomach or intestine problems, especially colitis an unusual or allergic reaction to cephalexin, other cephalosporins, penicillins, other antibiotics, medicines, foods, dyes or preservatives or trying to get breast-feeding What should I watch for while using this medicine? Tell your doctor or health clinical manager home care if your symptoms do not begin to improve in a few days. Do not treat diarrhea with over the counter products. Contact your doctor if you have diarrhea that lasts more than 2 days or if it is severe and watery. If you have diabetes, you may get a false-positive result for sugar in your urine. Check with your doctor or health clinical manager home care. You have been given the following additional information: Cellulitis Constipation (Adult) Cephalexin Monohydrate Oral tablet (Electronically signed by KoroleChikis whitney P.A.-C 11/02/2016 23:59)
--- NOTE | 2016-11-05 09:01 | ED MAR SUMMARY ---
..... Medication Administration Record [facility] [address] [place] [address] Patient: ALEJA FERNANDEZ Visit ID: [id number] 46y, F Weight: 71.2 kg Height/Length: 66 in BMI: 25.3 ALLERGIES: No Known Drug Allergy Start 21:59 11/02/2016 Sheriff Dupree R.N. Medication Administered: IV NS (SALINE), Dose: IV Fluids over 30 minute(s), Rate: 1000 mL/hr, Dispensed: 250 mL bag, Site: #1 left wrist. Medication Ordered: IV NS : initial bolus 250 mL (1000 mL/hr), then 200 mL/hr for X1 (NOW); Riky. Given 00:12 11/03/2016 Kj Quijano R.N. Medication Administered: BACTRIM DS [PO] (SULFAMETHOXAZOLE-TMP DS), Dose: 1 tab PO. Medication Ordered: Bactrim DS PO (Tablet 800-160 mg) 1 tab (NOW). Given 00:12 11/03/2016 Kj Quijano RMartín Medication Administered: KEFLEX [PO] (CEPHALEXIN), Dose: 500 mg PO. Medication Ordered: Keflex PO 500 mg (NOW).
--- NOTE | 2016-11-05 09:01 | ED MED RECONCILIATION SUMMARY ---
Patient: ALEJA FERNANDEZ Medication Reconciliation Report [facility] VisitID: [id number] [address] [place] [address] 46y, F Registration Date/Time: 11/02/2016 Weight: 71.2 kg Height/Length: 66 in. BMI: 25.3 ALLERGIES: No Known Drug Allergy The patient's Home Medications are listed below: THE FOLLOWING MEDICATIONS NEED TO BE RECONCILED: Percocet Oral The source(s) of the original Home Medication information: Not obtained. The following Medications were given to the patient in the Emergency Department: IV NS IV Fluids bolus 0, then 1000 mL/hr, administered: 11/02/2016 9:59:00 PM Bactrim DS [PO] PO 1 tab, administered: 11/03/2016 12:12:00 AM Keflex [PO] PO 500 mg, administered: 11/03/2016 12:12:00 AM The following Medications were prescribed to the patient: Cephalexin 500 mg: take 1 capsule orally every 8 hours for 10 days. No refill. -- Chikis Casiano P.A.-Jean Bactrim DS 800 mg / 160 mg: take 1 tablet orally every 12 hours for 10 days. No refill. Substitution is permissible. -- Chikis Casiano, P.A.-Jean Colace capsules (available over the counter): take according to label instructions. -- Chikis Casiano P.A.-C
== END 2016-11-03 00:12 | disposition home or self-care (01) ==
LOC: ED SRH 20:54
DX: L03.311 Cellulitis of abdominal wall (principal); K59.00 Constipation, unspecified; R10.33 Periumbilical pain; G89.18 Other acute postprocedural pain
CPT/HCPCS: 90100; 95059